=== PATIENT | female | born 1945 ===

== ENCOUNTER 2022-07-05 11:37 | Outpatient (CLI) | payer OTHER ==
[~2022-07-05 11:37] MED LIST: ARTANE2 MG; DOLOGESIC 500-1 EACH; INDUR; JANTOVEN5 MG; KEPPRA500 MG; LEVOXYL125 MCG; MIRAPEX0.75 MG; SIMVASTATIN5 MG; ZANAFLEX2 M1
== END 2022-07-05 11:47 | disposition home or self-care (01) ==
LOC: LAB 11:37
PROVIDERS: ATTEND Obstetrics & Gynecology Gynecology
DX: Z20.822 Contact with and (suspected) exposure to COVID-19 (principal); I10 Essential (primary) hypertension

== ENCOUNTER 2022-07-12 06:20 | Day surgery (SDC) | payer OTHER ==
[~2022-07-12 06:20] MED LIST changes: +GABAPENT PO; +KEP PO; +SIMVAST PO; +[UNRECOGNIZED DRUG - OTHER] PO
[2022-07-12] MEDS ORDERED: CEPHALEXIN750 MG PO (11:11)
[2022-07-12] MEDS ORDERED: TYLENOL ARTHRI650 MG PO (11:11)
== END 2022-07-12 13:00 | disposition home or self-care (01) ==
LOC: CIR.AMB 06:20
PROVIDERS: ATTEND Obstetrics & Gynecology Gynecology
DX: N32.81 Overactive bladder (principal); R39.15 Urgency of urination; R35.0 Frequency of micturition; J45.909 Unspecified asthma, uncomplicated; Z87.891 Personal history of nicotine dependence; Z86.73 Personal history of transient ischemic attack (TIA), and cerebral infarction without residual deficits; G40.802 Other epilepsy, not intractable, without status epilepticus